=== PATIENT | female | born 1965 | race African-American/Black ===

== ENCOUNTER 2021-12-28 09:06 | Emergency (ER) | payer OTHER, SELFPAY ==
--- NOTE | ~2021-12-28 | XR_ITS ---
EXAMINATION: BILATERAL FOOT X-RAY CLINICAL INFORMATION: Pain and swelling COMPARISON: None TECHNIQUE: 3 views each foot FINDINGS: Bone alignment is normal. No fracture or dislocation is seen. The joint spaces are normal. There is a question of a small calcaneal spur at the Achilles tendon insertion on the left. Soft tissues are otherwise normal. XR/XR foot LT 2V IMPRESSION: Probable left plantar calcaneal spur. Otherwise unremarkable exam.
--- NOTE | ~2021-12-28 | XR_ITS ---
EXAMINATION: BILATERAL FOOT X-RAY CLINICAL INFORMATION: Pain and swelling COMPARISON: None TECHNIQUE: 3 views each foot FINDINGS: Bone alignment is normal. No fracture or dislocation is seen. The joint spaces are normal. There is a question of a small calcaneal spur at the Achilles tendon insertion on the left. Soft tissues are otherwise normal. XR/XR foot RT 2V IMPRESSION: Probable left plantar calcaneal spur. Otherwise unremarkable exam.
[2021-12-28 09:40] VITALS: BP 90/65; PULSE 100; RESP 18; TEMP 37.2; O2SAT 96; BMI 33.6
--- NOTE | 2021-12-28 10:02 | ED.LOWEXIN ---
HPI - Extremity Injury (Lower) General Chief Complaint: Extremity Injury, Lower Stated Complaint: L and R foot pain Time Seen by Provider: 12/28/21 09:46 Source: patient and family Mode of arrival: wheelchair Limitations: no limitations History of Present Illness HPI Narrative: 56 yo female with history of PE (secondary to COVID 09/2021) on eliquis, HTN, asthma, sleep apnea here with reports of bilateral foot pain. Patient tells me 1 week ago her family member stepped on her left foot. She was seen at a hospital in [place]. It is unclear if she had a fracture. She was recommended to wear a boot and use crutches for ambulation. Patient tells me she does not like wearing the boot because it makes her have more pain. Will using the crutches today she became off balance and fell causing an inversion injury of the right foot. Now having pain in both feet. Patient denies taking any medication for pain. Patient is visiting a family member from [place] and has plans to go home this week. She has follow-up with orthopedics there. Related Data Allergies Allergy/AdvReac Type Severity Reaction Status Date / Time Penicillins Allergy Hives Verified 12/28/21 09:39 Sulfa (Sulfonamide Allergy Hives Verified 12/28/21 09:40 Antibiotics) Review of Systems Review of Systems: Yes all other systems are reviewed and are negative Constitutional: Constitutional: Reports no additional constitutional complaints, Denies body ache(s), Denies chills, Denies fever(s), Denies headache(s) and Denies weakness Eyes: Eyes: Reports no additional eye complaints and Denies change in vision ENT: Reports system reviewed and no additional complaints, except as documented, Denies dizziness, Denies headache(s), Denies nasal congestion, Denies nasal discharge and Denies neck pain Cardiovascular: Cardiovascular: Reports no additional cardiovascular complaints, Denies chest pain, Denies leg edema and Denies dyspnea Respiratory: Respiratory: Reports no additional respiratory complaints, Denies cough and Denies dyspnea Gastrointestinal: Gastrointestinal: Reports no additional gastrointestinal complaints, Denies abdominal pain, Denies diarrhea, Denies nausea and Denies vomiting Genitourinary: Genitourinary: Reports no additional female genitourinary complaints and Denies urinary incontinence Musculoskeletal: Musculoskeletal: Reports no additional musculoskeletal complaints, Denies back pain, Reports arthralgias, Reports joint swelling, Denies neck pain, Denies numbness and Denies tingling Integumentary/Breasts: Skin/Breast: Reports system reviewed and no additional complaints, except as docu and Denies rash Neurologic: Reports system reviewed and no additional complaints, except as documented, Denies Abnormal speech present, Denies dizziness, Denies headache(s), Denies numbness, Denies tingling and Denies weakness PMF Past Medical History Attestation statement: The following information was validated with the patient. Source: old records reviewed and nursing notes reviewed Medical History Asthma HTN (hypertension) Social History Social History Advance Directives: No Advance Directives Information Provided: No Physical Exam Vital Signs: Vital Signs: Last Vital Signs Temp 99 F 12/28/21 09:40 Pulse 100 12/28/21 09:40 Resp 18 12/28/21 09:40 BP 90/65 12/28/21 09:40 Pulse Ox 96 12/28/21 09:40 BMI result Body Mass Index 33.6 Const: General: cooperative, healthy appearing, comfortable and no acute distress Orientation/consciousness: patient oriented x3 Limitations: no limitations HEENT: Head: Yes normal to inspection Ears: hearing grossly normal bilaterally General nose exam: Normal external nose present Face and sinus: Yes normal facial exam Mouth: Normal oral and palatal mucosa present Throat: Yes posterior oropharynx normal Eyes: General: appearance normal, both eyes and all related structures Pupils: Equal, round and reactive pupils present Neck: Neck: Yes normal visual inspection Chest: Chest palpation & inspection: normal inspection of the chest Resp: Effort & Inspection: normal respiratory effort Auscultation: clear to auscultation bilaterally Cardio: Rate: regular rate Rhythm: regular rhythm Peripheral pulses: Peripheral pulses 2+ throughout GI: Inspection: Yes normal to inspection Palpation (GI): Soft to palpation and nontender Auscultation: normal bowel sounds Back/Spine/Pelvis: Thoracic/Lumbar Spine: thoracic and lumbar spine normal to inspection Skin: General skin exam: no rashes or lesions noted Neuro: General: patient oriented x3, no focal motor deficits and normal sensation to monofilament Cranial nerves: Yes Equal, round and reactive pupils present Cognition (Neuro): normal cognition Speech: No Abnormal speech present Gait exam (Neuro): Normal gait present Motor exam (neuro): 5/5 motor strength present throughout Extrem: Other: There is mod swelling to the dorsal left foot with limited flexion/extension of foot d/t pain. 2+ DP and PT pulses. Normal cap refill. Mild swelling and tenderness to the lateral aspect of the left foot. Limited ROM d/t pain. 2+ DP and PT pulses. Normal cap refill. Course Course Course Narrative: 56 yo female here with complaints of continued left foot pain after injury 1 week ago noncompliant with using orthopedic boot at home. now also c/o right foot pain after twisting injury today while attempting to use crutches. Will check x-rays, APAP for pain. 1130-x-ray show no fractures. Likely contusion, sprain. Patient has an orthopedic boot at home as well as a walker and crutches but she has been noncompliant with these. Offered Damien wrap and postoperative for comfort. Patient can take Tylenol at home and continue to rest and elevate the extremity. She has follow-up with her primary care doctor as well as orthopedic doctor in [place]. She is here with family. Reviewed worrisome signs and symptoms and when to return to the emergency department. Comfortable discharge home. MDM - Extremity Injury (Lower) Medical Records Attestation: I reviewed the patient's medical records. Lab Data Attestation: I reviewed the patient's lab results. Imaging Data bilateral foot x-ray: Attestation: I personally reviewed and interpreted this imaging study as follows: Radiologist's impression: FINDINGS: Bone alignment is normal. No fracture or dislocation is seen. The joint spaces are normal. There is a question of a small calcaneal spur at the Achilles tendon insertion on the left. Soft tissues are otherwise normal. XR/XR foot LT 2V IMPRESSION: Probable left plantar calcaneal spur. Otherwise unremarkable exam.? Procedures Procedure Narrative Procedure Narrative: post-operative shoe, crutches Discharge Plan Discharge Clinical Impression: Contusion of foot, left, Right foot sprain Patient Disposition: Home, Self-Care Instructions: How to Use an Elastic Bandage (ED), Foot Contusion (ED), Foot Sprain (ED), Ice Pack Application (ED) Additional Instructions: Use Damien wrap and shoe for comfort Elevate the extremities Ice 20 minutes on 20 minutes off Continue to use crutches. If this is difficult you may use your walker or ask your primary care doctor for prescription for a wheelchair Follow-up with your doctors in [place] Tylenol for pain Referrals: PhysicianKatie [Primary Care Provider] - 1 week
[2021-12-28] MEDS: Acetaminophen 325 MG TABLET 975 MG PO (10:26)
== END 2021-12-28 11:47 | disposition home or self-care (01) ==
PROVIDERS: Emergency Provider Emergency Medicine Emergency Medical Services
DX: S93.601A Unspecified sprain of right foot, initial encounter (principal); X50.1XXA Overexertion from prolonged static or awkward postures, initial encounter; Y93.89 Activity, other specified; S90.32XA Contusion of left foot, initial encounter; W50.0XXA Accidental hit or strike by another person, initial encounter; Y93.9 Activity, unspecified; Y92.9 Unspecified place or not applicable; Y99.9 Unspecified external cause status; I10 Essential (primary) hypertension; Z91.19 Patient's noncompliance with other medical treatment and regimen
CPT/HCPCS: 73620; 99283; 99284